=== PATIENT | female | born 1990 | race Two or more races ===

== ENCOUNTER 2022-05-13 03:07 | Emergency (ER) | payer OTHER ==
[~2022-05-13] VITALS: Ht 177.8 cm; Wt 74.8 kg
[2022-05-13] MEDS ORDERED: PEPCID40 MG PO ×2 (08:10→08:11)
[2022-05-13] MEDS ORDERED: PROTONIX40 MG PO ×2 (08:10→08:11)
[2022-05-13] MEDS ORDERED: ONDANSETRON ODT4 MG PO ×2 (08:11)
== END 2022-05-13 08:42 ==
LOC: ER 03:07
DX: R10.13 Epigastric pain (principal); R11.10 Vomiting, unspecified